=== PATIENT | male | born 1985 | race Caucasian/White ===

== ENCOUNTER 2021-06-01 14:09 | Emergency (ER) | payer OTHER ==
[~2021-06-01] VITALS: Ht 182.9 cm; Wt 59.1 kg
[2021-06-01] MEDS ORDERED: HYDR-4571 PO (14:24)
[2021-06-01] MEDS ORDERED: CLIN150C17 PO (14:24)
[2021-06-01] MEDS ORDERED: BOOSTRIX/ADACEL VACCINE (DIPHTH/PERTUSS/ACELL/TETANUS) 0.5ML SYR IM ONE (15:10)
[2021-06-01] MEDS ORDERED: PERCOCET 5MG/325MG TAB PO ONE (15:15)
[2021-06-01] MEDS ORDERED: DOXYCYCLINE HYCLATE 100MG TABLET PO ONE (15:55)
[2021-06-01] MEDS ORDERED: metroNIDAZOLE (FLAGYL) 500MG TABLET PO ONE (15:55)
[2021-06-01 16:11] VITALS: BP 123/74
== END 2021-06-01 16:39 | disposition home or self-care (01) ==
LOC: M ED 14:09
DX: S61.451A Open bite of right hand, initial encounter (principal); W54.0XXA Bitten by dog, initial encounter; Y92.009 Unspecified place in unspecified non-institutional (private) residence as the place of occurrence of the external cause; Y93.9 Activity, unspecified; Y99.9 Unspecified external cause status